=== PATIENT | female | born 1950 | race Caucasian/White ===

== ENCOUNTER → 2019-11-19 10:50 | Outpatient (BNVA) | payer MEDICARE, SELFPAY | PROVIDERS: Family Provider Nurse Practitioner Family; PCP Nurse Practitioner Family; Visit Provider Nurse Practitioner Family | DX: E11.69 Type 2 diabetes mellitus with other specified complication (principal); Z72.0 Tobacco use; E78.5 Hyperlipidemia, unspecified; I10 Essential (primary) hypertension | CPT/HCPCS: 80053; 80061; 84443; 85025 ==

== ENCOUNTER → 2019-12-11 10:51 | Outpatient (BNVA) | payer MEDICARE, SELFPAY | PROVIDERS: Family Provider Nurse Practitioner Family; PCP Nurse Practitioner Family; Visit Provider Family Medicine | DX: E11.9 Type 2 diabetes mellitus without complications (principal); E78.2 Mixed hyperlipidemia | CPT/HCPCS: 83036 ==

== ENCOUNTER → 2020-07-21 18:00 | Outpatient (BNVA) | payer MEDICARE, SELFPAY | PROVIDERS: Family Provider Nurse Practitioner Family; PCP Nurse Practitioner Family; Visit Provider Family Medicine | DX: E11.9 Type 2 diabetes mellitus without complications (principal); E78.2 Mixed hyperlipidemia; E78.1 Pure hyperglyceridemia; R03.0 Elevated blood-pressure reading, without diagnosis of hypertension | CPT/HCPCS: 80048; 83036 ==

== ENCOUNTER → 2021-01-25 10:22 | Outpatient (BNVA) | payer MEDICARE, SELFPAY | PROVIDERS: Family Provider Nurse Practitioner Family; PCP Nurse Practitioner Family; Visit Provider Family Medicine | DX: E11.9 Type 2 diabetes mellitus without complications (principal); E78.2 Mixed hyperlipidemia; E78.1 Pure hyperglyceridemia; Z72.0 Tobacco use; L72.0 Epidermal cyst; J44.9 Chronic obstructive pulmonary disease, unspecified | CPT/HCPCS: 80053; 80061; 83036; 83721 ==

== ENCOUNTER → 2021-06-30 10:43 | Outpatient (BNVA) | payer MEDICARE, SELFPAY | PROVIDERS: Family Provider Nurse Practitioner Family; PCP Nurse Practitioner Family; Visit Provider Emergency Medicine | DX: M25.562 Pain in left knee (principal); N64.52 Nipple discharge | CPT/HCPCS: 73562 ==

== ENCOUNTER → 2021-08-23 13:40 | Outpatient (BNVA) | payer MEDICARE, SELFPAY | PROVIDERS: Family Provider Nurse Practitioner Family; PCP Family Medicine; Visit Provider Family Medicine | DX: E11.9 Type 2 diabetes mellitus without complications (principal); N61.0 Mastitis without abscess | CPT/HCPCS: 80053; 83036; 85025 ==

== ENCOUNTER → 2021-11-24 11:30 | Outpatient (BNVA) | payer MEDICARE, SELFPAY | PROVIDERS: Family Provider Nurse Practitioner Family; PCP Family Medicine; Visit Provider Family Medicine | DX: E11.9 Type 2 diabetes mellitus without complications (principal); I10 Essential (primary) hypertension; E78.1 Pure hyperglyceridemia; L65.9 Nonscarring hair loss, unspecified; R53.83 Other fatigue; E03.9 Hypothyroidism, unspecified; C50.919 Malignant neoplasm of unspecified site of unspecified female breast | CPT/HCPCS: 80053; 80061; 82607; 82652; 83036; 83721; 84439; 84443; 84481; 85025 ==

== ENCOUNTER → 2022-06-20 11:40 | Outpatient (BNVA) | payer MEDICARE, SELFPAY | PROVIDERS: Family Provider Nurse Practitioner Family; PCP Family Medicine; Visit Provider Family Medicine | DX: E11.9 Type 2 diabetes mellitus without complications (principal); I10 Essential (primary) hypertension; L72.0 Epidermal cyst; L81.4 Other melanin hyperpigmentation; L57.0 Actinic keratosis; J44.9 Chronic obstructive pulmonary disease, unspecified; E78.1 Pure hyperglyceridemia; S69.92XA Unspecified injury of left wrist, hand and finger(s), initial encounter | CPT/HCPCS: 80053; 80061; 83036; 83721; 85025 ==

== ENCOUNTER → 2022-12-14 10:39 | Outpatient (BNVA) | payer MEDICARE, SELFPAY | PROVIDERS: Family Provider Nurse Practitioner Family; PCP Family Medicine; Visit Provider Family Medicine | DX: E11.9 Type 2 diabetes mellitus without complications (principal); E78.2 Mixed hyperlipidemia; I10 Essential (primary) hypertension; E78.1 Pure hyperglyceridemia; J44.9 Chronic obstructive pulmonary disease, unspecified; B02.9 Zoster without complications; Z71.85 Encounter for immunization safety counseling | CPT/HCPCS: 80048; 80061; 83036; 83721 ==

== ENCOUNTER → 2023-02-01 13:30 | Outpatient (BNVA) | payer MEDICARE, SELFPAY | PROVIDERS: Family Provider Nurse Practitioner Family; PCP Family Medicine; Visit Provider Family Medicine | DX: R07.81 Pleurodynia (principal); R19.02 Left upper quadrant abdominal swelling, mass and lump; J84.10 Pulmonary fibrosis, unspecified | CPT/HCPCS: 71046; 74018 ==

== ENCOUNTER 2023-02-21 13:29 | Outpatient (CLI) | payer MEDICARE, SELFPAY ==
--- NOTE | 2023-02-21 13:47 | CT_ITS ---
WS: [id number] CT CHEST AND ABDOMEN WITH CONTRAST HISTORY: R07.81 - Pleurodynia, Mass in LEFT upper quadrant for one month. Prior LEFT mastectomy. TECHNIQUE: Axial imaging is performed through the chest and abdomen with IV contrast. Sagittal and co tera reformats. All CT scans at [facility] use at least one of these dose optimization techn iques: automated exposure control; mA and/or kV adjustment per patient size (includes targeted exams where dose is matched to clinical indication); or iterative reconstruction. CONTRAST: Omnipaque 350; 100 mL IV. DLP: 439.36 mGy.cm COMPARISON: None available. Chest CT: Benign granulomata LEFT lower lobe. Otherwise lungs are clear. No mass or pneumonia. No pericardial or pleural effusions. Mild cardiomegaly. No mediastinal or hilar adenopathy. Mild atherosclerosis aorta. Prior LEFT mastectomy. LEFT thyroid nodule the maximum diameter of 11 mm. Mild increase in thoracic kyphosis. No destructive bone lesions. Abdomen CT: Normal size liver. 5 mm hypodensity towards the RIGHT diaphragm. 2 small to characterize. Normal port al vein. Gallbladder is slightly contracted with no adjacent inflammation. Normal spleen. Normal panc reas. No adrenal mass. Normal RIGHT kidney. Cyst upper pole LEFT kidney measures 1.2 cm. Stomach is distended with fluid. No small bowel obstruction. Visualized colon is normal. No adenopath y or ascites. Marker placed in the LEFT upper quadrant at the site of the palpable abnormality demons trates no underlying mass. No soft tissue abnormality. No destructive bone lesions. CT/CT chest abdomen w con* IMPRESSION: 1. No mass identified in the LEFT upper abdomen at the site of the palpable ab normality. 2. Prior granulomatous disease. 3. Mild cardiomegaly. 4. LEFT renal cyst, 1.2 cm. 5. No adenopathy in the chest or abdomen. No ascites.
[2023-02-21 14:05] LABS: Blood Urea Nitrogen 19 mg/dL (8-23)
[2023-02-21] MEDS: iohexol 350 mg/mL 500 mL Btl (per mL) IV (14:12)
== END 2023-02-21 13:30 | disposition home or self-care (01) ==
PROVIDERS: PCP Family Medicine; Visit Provider Family Medicine
DX: R07.81 Pleurodynia (principal); R19.02 Left upper quadrant abdominal swelling, mass and lump; R93.89 Abnormal findings on diagnostic imaging of other specified body structures; I51.7 Cardiomegaly; N28.1 Cyst of kidney, acquired; Z85.3 Personal history of malignant neoplasm of breast; Z87.09 Personal history of other diseases of the respiratory system
CPT/HCPCS: 71260; 74160; 82565; 84520; Q9967

== ENCOUNTER 2023-03-16 13:04 | Outpatient (CLI) | payer MEDICARE, SELFPAY ==
--- NOTE | 2023-03-16 13:15 | US_ITS ---
WS: [id number] ULTRASOUND THYROID TECHNIQUE: Ultrasound of the thyroid. CLINICAL INFORMATION: E04.1 - Nontoxic single thyroid nodule COMPARISON: None. FINDINGS: Thyroid: Right and left thyroid lobes are normal in size and echotexture. Right thyroid lobe: 4.3 cm x 1.9 cm x 1.5 cm Complex predominantly solid RIGHT mid thyroid nodule with a small amount of cystic change. This measu res approximately 1.7 x 1.3 x 1.9 cm Left thyroid lobe: 4.0 cm x 1.3 cm x 1.5 cm. A few small subcentimeter cystic-appearing and hypoechoic LEFT thyroid nodules largest measuring 6 mm in the mid thyroid near thyroid isthmus Isthmus: 0.2 mm. Cervical lymphadenopathy: None. US/US thyroid [id number] IMPRESSION: 1. Complex predominantly solid RIGHT mid thyroid nodule with a small amount of cystic change measuring 1.7 x 1.3 x 1.9 cm. This can be further evaluated with FNA. 2. Incidental subcentimeter LEFT thyroid nodules.
== END 2023-03-16 13:05 | disposition home or self-care (01) ==
LOC: RAD 13:04
PROVIDERS: PCP Family Medicine; Visit Provider Family Medicine
DX: E04.1 Nontoxic single thyroid nodule (principal); R93.89 Abnormal findings on diagnostic imaging of other specified body structures; Z83.49 Family history of other endocrine, nutritional and metabolic diseases
CPT/HCPCS: 76536

== ENCOUNTER 2023-04-04 08:03 | Outpatient (CLI) | payer MEDICARE, SELFPAY ==
--- NOTE | 2023-04-04 09:15 | US_ITS ---
WS: [id number] ULTRASOUND THYROID FNA CLINICAL INFORMATION: E04.1 - Nontoxic single thyroid nodule TECHNIQUE: Ultrasound-guided FNA FINDINGS: The procedure including risks, benefits, and complications were discussed with the patient who agreed to proceed. Timeout was performed. Using sterile technique patient was prepped and draped in usual sterile fashion. After 1% lidocaine, using ultrasound guidance, 25-gauge needle was advanced into the RIGHT thyroid nodule. 5 passes were made with active aspiration. Pathology was present for slide preparation. No immediate complications. Patient remained in the ultrasound suite 10 minutes postprocedure with intermittent ultrasound to ens ure no hematoma. No hematoma 10 minutes postprocedure. US/US biopsy/FNA thyroid [id number] IMPRESSION: 1. Uncomplicated ultrasound-guided thyroid FNA of the RIGHT mid thyroid nodule 2. Cytology is pending
== END 2023-04-04 08:04 | disposition home or self-care (01) ==
PROVIDERS: PCP Family Medicine; Visit Provider Family Medicine
DX: E04.1 Nontoxic single thyroid nodule (principal)
CPT/HCPCS: 10005; 88173

== ENCOUNTER → 2023-06-14 10:47 | Outpatient (BNVA) | payer MEDICARE, SELFPAY | PROVIDERS: PCP Family Medicine; Visit Provider Family Medicine | DX: E11.9 Type 2 diabetes mellitus without complications (principal); I10 Essential (primary) hypertension; B02.29 Other postherpetic nervous system involvement; F51.01 Primary insomnia; E04.1 Nontoxic single thyroid nodule | CPT/HCPCS: 80053; 83036 ==

== ENCOUNTER → 2023-08-03 13:18 | Outpatient (BNVA) | payer MEDICARE, SELFPAY | PROVIDERS: PCP Family Medicine; Visit Provider Nurse Practitioner Family | DX: L57.0 Actinic keratosis (principal); L82.0 Inflamed seborrheic keratosis; L57.8 Other skin changes due to chronic exposure to nonionizing radiation; D22.5 Melanocytic nevi of trunk; L81.4 Other melanin hyperpigmentation | CPT/HCPCS: 17000; 17110; 99203 ==

== ENCOUNTER → 2023-11-27 10:18 | Outpatient (BNVA) | payer MEDICARE, SELFPAY | PROVIDERS: PCP Family Medicine; Visit Provider Family Medicine | DX: E11.9 Type 2 diabetes mellitus without complications (principal); I10 Essential (primary) hypertension; E78.1 Pure hyperglyceridemia | CPT/HCPCS: 80048; 80061; 83036; 83721 ==

== ENCOUNTER 2024-03-11 06:14 | Outpatient (CLI) | payer MEDICARE, SELFPAY ==
--- NOTE | 2024-03-11 06:30 | US_ITS ---
WS: [id number] ULTRASOUND SOFT TISSUES LEFT axilla HISTORY: R59.1 - Generalized enlarged lymph nodes COMPARISON: None available. TECHNIQUE: 2-D and color Doppler imaging is submitted. Ultrasound was performed of the LEFT axilla. No mass is identified. There is a normal appearance of t he soft tissue. No distortion of the tissue. US/US soft tissue/extremity [id number] IMPRESSION: Negative ultrasound LEFT axilla. No mass.
== END 2024-03-11 06:15 | disposition home or self-care (01) ==
LOC: RAD 06:14
PROVIDERS: PCP Family Medicine; Visit Provider Nurse Practitioner
DX: R59.1 Generalized enlarged lymph nodes (principal)
CPT/HCPCS: 76882

== ENCOUNTER → 2024-05-29 10:39 | Outpatient (BNVA) | payer MEDICARE, SELFPAY | PROVIDERS: PCP Family Medicine; Visit Provider Family Medicine | DX: I10 Essential (primary) hypertension (principal); E11.9 Type 2 diabetes mellitus without complications | CPT/HCPCS: 80053; 83036 ==

== ENCOUNTER → 2024-08-28 11:08 | Outpatient (BNVA) | payer MEDICARE, SELFPAY | PROVIDERS: PCP Family Medicine; Visit Provider Family Medicine | DX: E11.9 Type 2 diabetes mellitus without complications (principal) | CPT/HCPCS: 83036 ==

== ENCOUNTER → 2024-09-04 12:41 | Outpatient (BNVA) | payer MEDICARE, SELFPAY | PROVIDERS: PCP Family Medicine; Visit Provider Nurse Practitioner Family | DX: L57.8 Other skin changes due to chronic exposure to nonionizing radiation (principal); D22.5 Melanocytic nevi of trunk; L81.4 Other melanin hyperpigmentation; D22.72 Melanocytic nevi of left lower limb, including hip; B07.0 Plantar wart; L82.0 Inflamed seborrheic keratosis; D48.5 Neoplasm of uncertain behavior of skin; L57.0 Actinic keratosis | CPT/HCPCS: 11102; 17000; 17110; 99213 ==

== ENCOUNTER → 2024-10-16 08:07 | Outpatient (BNVA) | payer MEDICARE, SELFPAY | PROVIDERS: PCP Family Medicine; Visit Provider Dermatology | DX: L82.1 Other seborrheic keratosis (principal); L81.4 Other melanin hyperpigmentation; D18.01 Hemangioma of skin and subcutaneous tissue; F17.200 Nicotine dependence, unspecified, uncomplicated; C44.01 Basal cell carcinoma of skin of lip | CPT/HCPCS: 13151; 17311; 99213 ==

== ENCOUNTER → 2024-11-22 10:48 | Outpatient (BNVA) | payer MEDICARE, SELFPAY | PROVIDERS: PCP Family Medicine; Referring Provider Family Medicine; Visit Provider Family Medicine | DX: E11.9 Type 2 diabetes mellitus without complications (principal) | CPT/HCPCS: 83036 ==

== ENCOUNTER → 2025-02-19 15:16 | Outpatient (BNVA) | payer MEDICARE, SELFPAY | PROVIDERS: PCP Family Medicine; Visit Provider Nurse Practitioner Family | DX: L81.4 Other melanin hyperpigmentation (principal); L57.8 Other skin changes due to chronic exposure to nonionizing radiation; D22.5 Melanocytic nevi of trunk; L82.1 Other seborrheic keratosis; Z08 Encounter for follow-up examination after completed treatment for malignant neoplasm; Z85.828 Personal history of other malignant neoplasm of skin; L82.0 Inflamed seborrheic keratosis; R58 Hemorrhage, not elsewhere classified; L29.89 Other pruritus; R20.8 Other disturbances of skin sensation; Z78.9 Other specified health status; L53.8 Other specified erythematous conditions | CPT/HCPCS: 17000; 17110; 99213 ==

== ENCOUNTER → 2025-02-21 10:18 | Outpatient (BNVA) | payer MEDICARE, SELFPAY | PROVIDERS: PCP Family Medicine; Visit Provider Family Medicine | DX: E11.9 Type 2 diabetes mellitus without complications (principal); J44.9 Chronic obstructive pulmonary disease, unspecified; I10 Essential (primary) hypertension; E78.1 Pure hyperglyceridemia | CPT/HCPCS: 80053; 80061; 83036; 83721; 85025 ==

== ENCOUNTER → 2025-05-19 10:50 | Outpatient (BNVA) | payer MEDICARE, SELFPAY | PROVIDERS: PCP Family Medicine; Visit Provider Nurse Practitioner | DX: E11.9 Type 2 diabetes mellitus without complications (principal) | CPT/HCPCS: 80048; 83036 ==

== ENCOUNTER → 2025-07-09 13:41 | Outpatient (BNVA) | payer MEDICARE, SELFPAY | PROVIDERS: PCP Family Medicine; Visit Provider Internal Medicine Cardiovascular Disease | DX: E78.1 Pure hyperglyceridemia (principal); E11.9 Type 2 diabetes mellitus without complications; Z79.84 Long term (current) use of oral hypoglycemic drugs; I10 Essential (primary) hypertension; M79.604 Pain in right leg; F17.210 Nicotine dependence, cigarettes, uncomplicated; R07.9 Chest pain, unspecified | CPT/HCPCS: 93005; 99214 ==

== ENCOUNTER 2025-07-18 13:45 | Outpatient (CLI) | payer MEDICARE, SELFPAY ==
--- NOTE | 2025-07-18 13:45 | USR_ITS ---
PROCEDURE INFORMATION: Exam: US Duplex Bilateral Lower Extremity Arteries Exam date and time: 07/18/2025 1:53 PM Age: 75 years old Clinical indication: Pain; Leg, lower; Bilateral; Additional info: Bilat leg pain TECHNIQUE: Imaging protocol: Real-time ultrasound scan of the arteries of the bilateral lower extremities with 2-D sanchez scale, color Doppler flow and spectral waveform analysis. Images documented and saved. COMPARISON: US soft tissue/extremity [id number] 03/11/2024 6:26 AM FINDINGS: Right common femoral artery: No occlusion or significant stenosis. Normal waveform. Right superficial femoral artery: No occlusion or significant stenosis. Normal waveform. Right popliteal artery: There is severe diffuse nonocclusive disease with. Low-amplitude monophasic waveform. Right calf/foot arteries: There is severe diffuse nonocclusive disease in the visualized arteries. Low amplitude monophasic waveform waveforms are present. Dorsalis pedis artery is patent. Left common femoral artery: No occlusion or significant stenosis. Normal waveform. Left superficial femoral artery: No occlusion or significant stenosis. Normal waveform. Left popliteal artery: There is severe diffuse nonocclusive disease. Low-amplitude monophasic waveform. Left calf/foot arteries: There is severe diffuse nonocclusive disease. Low-amplitude monophasic waveforms. Dorsalis pedis artery is patent. US/[place] [id number] IMPRESSION: 1. Severe diffuse nonocclusive disease in the bilateral popliteal and trifurcation vessels. 2. The remainder of the arterial system in both legs is unremarkable. .
== END 2025-07-18 13:46 | disposition home or self-care (01) ==
LOC: RAD 07-25 09:38
PROVIDERS: PCP Family Medicine; Visit Provider Internal Medicine Cardiovascular Disease
DX: M79.604 Pain in right leg (principal); M79.605 Pain in left leg; I70.203 Unspecified atherosclerosis of native arteries of extremities, bilateral legs
CPT/HCPCS: 93925

== ENCOUNTER 2025-08-06 15:17 | Outpatient (CLI) | payer MEDICARE, SELFPAY ==
--- NOTE | 2025-08-06 15:45 | CTR_ITS ---
PROCEDURE INFORMATION: Exam: CTA Abdominal Aorta and Bilateral Lower Extremities (Run-off) With Contrast Exam date and time: 08/06/2025 3:48 PM Age: 75 years old Clinical indication: Prior surgery; Surgery date: 6+ months; Surgery type: Tubal; Right leg pain with intermittent spasms; Additional info: Bilat leg pain TECHNIQUE: Imaging protocol: Computed tomographic angiography of the of the abdominal aorta, pelvis and bilateral lower extremities with contrast. 3D rendering (Not supervised by radiologist): MIP and/or 3D reconstructed images were created by the technologist. Radiation optimization: All CT scans at this facility use at least one of these dose optimization techniques: automated exposure control; mA and/or kV adjustment per patient size (includes targeted exams where dose is matched to clinical indication); or iterative reconstruction. Contrast material: OMNIPAQUE 350; Contrast volume: 125 ml; Contrast route: INTRAVENOUS (IV); COMPARISON: CT chest abd w con*[id number] 02/21/2023 2:08 PM RADIATION DOSE METRICS: Total DLP (mGy-cm): 1428.02 FINDINGS: Aorta: No aortic aneurysm. No aortic dissection. Mild atherosclerosis. Celiac and mesenteric arteries: No occlusion or significant stenosis. Renal arteries: No occlusion or significant stenosis. Right iliac arteries: Calcification and noncalcified plaque proximal right common iliac artery and proximal right internal iliac artery without significant stenosis. Right femoral/popliteal arteries: Calcification. Mild narrowing femoral artery in the adductor canal. There is occlusion of the popliteal artery just superior to the knee. Reconstitution popliteal artery [id number]. Mild narrowing left femoral artery in the Right infrapopliteal arteries: Opacified right anterior tibial artery extends into the right foot. Opacified peroneal artery extends into the right foot. Right posterior tibial artery occluded in the proximal right lower leg. Left iliac arteries: Calcification and noncalcified plaque proximal left common iliac artery and left internal iliac artery without significant stenosis. Left femoral/popliteal arteries: Mild narrowing left femoral artery in the adductor canal. Calcification in this area. Areas of narrowing of the left popliteal artery with area of the occlusion at the level of the knee with reconstitution left popliteal artery Left infrapopliteal arteries: Opacified left posterior tibial artery is seen extending into the left foot . Opacified left peroneal artery seen extending into the mid calf. Opacified left anterior tibial artery seen to the distal left lower leg. Liver: Fatty change. 5.7 mm round low-density lesion anterior upper right lobe of the liver most likely a cyst. No follow-up imaging recommended.In a low-risk patient, this is most likely to be benign and no further follow-up is recommended. In a high-risk patient, follow-up MRI in 3-6 months is recommended (or earlier if warranted by the patient's specific clinical circumstances). (Reference: Reta) References: Reta ISABEL, et al. Management of Incidental Liver Lesions on CT: A White Paper of the ACR Incidental Findings Committee. J Am Nayeli Radiol. 2017;14(11):1814-7655. Gallbladder and biliary ducts: Unremarkable. Status post cholecystectomy. Common bile duct measures up to 1 cm within normal limits for post cholecystectomy patient. Loose No ductal dilation. Pancreas: Dilatation of the pancreatic duct the head, body, and tail of the pancreas measuring up to 3 mm in diameter. 2.7 mm round low-density lesion anterior proximal tail image 141 series 5. Three point 6 mm round low-density lesion tail of pancreas. Heterogeneous body and head of the pancreas. Follow-up MRI suggested if clinically indicated. Spleen: Normal. No splenomegaly. Adrenal glands: Normal. No mass. Kidneys and ureters: 4.3 mm cyst anterior mid left kidney. No follow-up imaging recommended. No calculi. No hydronephrosis.. Benign simple renal cyst requiring no follow-up. (Reference: Cheryl) References: Cheryl SG, et al. Bosniak Classification of Cystic Renal Masses, Version 2019: An Update Proposal and Needs Assessment. Radiology. 2019;292(2):475-488. Stomach and bowel: Appearance of possible apple-core lesion proximal ascending colon slice 205 series 5. This measures 2.28 cm in length. Follow-up colonoscopy recommended. [id number] amount of fecal material throughout the colon. Correlate for constipation. Moderate distension of the stomach. Correlate for some delayed emptying. There is mild dilatation of the small bowel with increased fluid may represent mild stasis. Appendix: No evidence of appendicitis. Urinary bladder: Nondistended. Either an area of the localized wall thickening or adjacent soft tissue elevating floor of the urinary bladder. Ultrasound suggested on a nonemergent basis. Reproductive: Unremarkable as visualized. Intraperitoneal space: Unremarkable. No free air. No significant fluid collection. Lymph nodes: No lymphadenopathy. Bones/joints: Degenerative changes. Probable hemangioma body of T9. Soft tissues: Small umbilical hernia containing fat. CT/CT angio abd aorta runof [id number] IMPRESSION: 1. Diffuse atherosclerosis. 2. Occlusion and reconstitution right popliteal artery. Opacified right anterior tibial artery extends into the right foot. Opacified right peroneal artery extends to the right foot Right posterior tibial artery occluded in the proximal right lower leg . 3. Occlusion and reconstitution of the left popliteal artery. Opacified left posterior tibial artery seen extending into the left foot. Opacified left peroneal artery seen to the level of the left mid calf. Opacified left anterior tibial artery seen to the level of the left lower leg. 4. Appearance of the possible annular lesion of the ascending colon suspicious. Colonoscopy recommended. 5. Moderate amount of fecal material throughout colon. Correlate for symptoms of constipation. Maybe some stasis of the small bowel. 6. Mild dilatation of the pancreatic duct. Two small cystic lesions in the pancreas. Heterogeneous density head and body of the pancreas but no discrete mass. Follow-up MRI of pancreas suggested if clinically indicated. 7. Status post cholecystectomy. Fatty change of the liver. Probable hepatic cyst. 8. Area of the mild localized wall thickening or some localized elevation of the floor of the urinary bladder . Follow-up nonemergent ultrasound suggested.
[2025-08-06 15:46] LABS: Blood Urea Nitrogen 32 mg/dL (8-23)
[2025-08-06] MEDS: iohexol 350 mg/mL 500 mL Btl (per mL) IV (16:00)
== END 2025-08-06 15:18 | disposition home or self-care (01) ==
LOC: RAD 15:18
PROVIDERS: PCP Family Medicine; Visit Provider Internal Medicine Cardiovascular Disease
DX: M79.604 Pain in right leg (principal); M79.605 Pain in left leg; I70.0 Atherosclerosis of aorta; I70.291 Other atherosclerosis of native arteries of extremities, right leg; I70.211 Atherosclerosis of native arteries of extremities with intermittent claudication, right leg; I70.221 Atherosclerosis of native arteries of extremities with rest pain, right leg; I70.202 Unspecified atherosclerosis of native arteries of extremities, left leg; I70.212 Atherosclerosis of native arteries of extremities with intermittent claudication, left leg; K76.0 Fatty (change of) liver, not elsewhere classified; K76.89 Other specified diseases of liver; Z90.49 Acquired absence of other specified parts of digestive tract; R90.89 Other abnormal findings on diagnostic imaging of central nervous system; K86.2 Cyst of pancreas; N28.1 Cyst of kidney, acquired; K56.41 Fecal impaction; K31.84 Gastroparesis; R14.0 Abdominal distension (gaseous); D37.4 Neoplasm of uncertain behavior of colon; R93.5 Abnormal findings on diagnostic imaging of other abdominal regions, including retroperitoneum; K42.9 Umbilical hernia without obstruction or gangrene
CPT/HCPCS: 75635; 82565; 84520

== ENCOUNTER → 2025-08-19 08:59 | Outpatient (BNVA) | payer MEDICARE, SELFPAY | PROVIDERS: PCP Family Medicine; Referring Provider Family Medicine; Visit Provider Family Medicine | DX: I10 Essential (primary) hypertension (principal); E11.9 Type 2 diabetes mellitus without complications; M79.671 Pain in right foot; R58 Hemorrhage, not elsewhere classified | CPT/HCPCS: 80048; 83036; 85025; 85610 ==

== ENCOUNTER → 2025-08-25 11:23 | Outpatient (BNVA) | payer MEDICARE, SELFPAY | PROVIDERS: PCP Family Medicine; Visit Provider Nurse Practitioner Family | DX: L57.0 Actinic keratosis (principal); L57.8 Other skin changes due to chronic exposure to nonionizing radiation; L81.4 Other melanin hyperpigmentation; D22.5 Melanocytic nevi of trunk; L82.1 Other seborrheic keratosis; Z08 Encounter for follow-up examination after completed treatment for malignant neoplasm; Z85.828 Personal history of other malignant neoplasm of skin | CPT/HCPCS: 99213 ==

== ENCOUNTER → 2025-09-04 10:39 | Outpatient (BNVA) | payer MEDICARE, SELFPAY | PROVIDERS: PCP Family Medicine; Visit Provider Podiatrist Foot & Ankle Surgery | DX: M79.671 Pain in right foot (principal); I73.9 Peripheral vascular disease, unspecified; M79.606 Pain in leg, unspecified; I99.8 Other disorder of circulatory system; M79.604 Pain in right leg | CPT/HCPCS: 99203 ==

== ENCOUNTER → 2025-09-05 08:54 | Outpatient (BNVA) | payer MEDICARE, SELFPAY | PROVIDERS: PCP Family Medicine; Referring Provider Internal Medicine Cardiovascular Disease; Visit Provider Internal Medicine Cardiovascular Disease | DX: I10 Essential (primary) hypertension (principal); E11.9 Type 2 diabetes mellitus without complications; Z72.0 Tobacco use; R58 Hemorrhage, not elsewhere classified | CPT/HCPCS: 80048; 85025; 85610 ==

== ENCOUNTER 2025-09-09 07:09 | Outpatient (CLI) | payer MEDICARE, SELFPAY ==
[2025-09-09] VITALS (33 sets, daily range): BP systolic 94–169; BP diastolic 56–108; PULSE 70–86; RESP 11–20; TEMP 36.6; O2SAT 90–95; BMI 24.7
--- NOTE | 2025-09-09 07:30 | XACV_ITS ---
Exam Room: 2 Ht: 163 cm Wt: 65 kg BSA: 1.73 m2 Gender: Female : 1950 Any Known Allergies: Other Exam Priority: STAT Procedure(s): Procedure Description: Diagnostic procedure Procedure Description: Peripheral Cath Diagnostic Procedure Procedure Description: Abdominal aortic angiography Procedure Description: Lower extremities' angiography Procedure Description: Peripheral vascular Intervention Procedure Description: PV Balloon Procedure Description: PV Stent Procedure Description: Miscellaneous Procedure Description: ACT Abdominal Diagnostic Findings Distal abdominal aorta is patent. Lower Extremity Diagnostic Findings INDICATION: Critical limb ischemia/ Right foot resting pain. Right Mid to distal-longitudinal Superficial Femoral Artery: 100% stenosis. Right Distal Superficial Femoral Artery: Total occlusion. Right lower extremity findings: Right common iliac artery is patent. Right external iliac artery is patent. Right internal iliac artery is patent. Right common femoral artery is patent. Right profunda artery is patent. Total occlusion of distal SFA. Popliteal artery reconstitutes via collaterals. Below the knee patient has 2 vessel runoff with patent anterior tibial and peroneal arteries. PT is totally occluded. . Left lower extremity findings: Left common iliac artery is patent. Left external iliac artery is patent. Left and iliac arteries patent. Left common femoral artery is patent. Left profunda artery is patent. Left SFA is patent with moderate disease. Left popliteal artery has moderate disease. Below the knee patient has 3 vessel runoff. . Right Mid-longitudinal Popliteal Artery: Moderate 70% stenosis. Lower Extremity Interventional Findings Right Distal Superficial Femoral Artery: 100% stenosis treated with Lutonix DCB 5 X 150mm and Supera Stent 6.0 X 80mm. Procedure detail:After diagnostic angiogram, cross totally occluded the right SFA with Glidewire and seeker support catheter. We dilated the popliteal artery and distal SFA with 5.0 x 150 mm drug-coated balloon. This was followed by placement of 5.0 x 80 mm Supera stent and popliteal artery. An overlapping 6.0 x 80 mm Supera stent was placed in distal SFA. At this time final angiogram was performed that showed excellent stent expansion and no residual stenosis. Patient left the pathology lab technician in a stable condition. Right Mid-longitudinal Popliteal Artery: 70% stenosis treated with Lutonix DCB 5 X 150mm and Supera Stent 5.0 X 80mm. Conclusions Severe right lower extremity peripheral artery disease status post revascularization of distal SFA to popliteal artery with 2 stents.. Right Distal Superficial Femoral Artery was treated with two Balloon. Right Mid-longitudinal Popliteal Artery was treated with Balloon and Stent. Recommendations Dual antiplatelet therapy with aspirin and plavix. High intensity statin therapy. Outpatient cardiology follow up in 2 weeks. Pressures Phase:Rest AO : 176 / 74 ( 113 ) @ 8:35:00 AM Hemodynamic Data Phase:Rest AO : 176.0 / 74.0 ( 113.0 ) @ 8:35:00 AM Clinical Evaluation EBL: 5mL-10mL Procedural Details Procedure Consent Obtained. Admit Source: Out Patient. Demarcus Sparks RN was relieved by Nelli Barnhart RN as monitoring person. Pre-Procedure Time Out. Identified patient by full name and date of as verbalized by the patient/guarantor. Does the consent match the physician's order: Yes. Accurate & Complete Informed Consent: Yes. Inpatient/Outpatient History & Physical on Chart: Yes. If H&P is completed, is and addenduem needed: No; If yes, is the addendum complete: N/A. Visualize and Verify Site with Patient/Guarantor: N/A. Relevant Radiology Images available: Yes. The risks, benefits, and alternatives of sedation and/or procedure were discussed by physician. The patient agrees to continue. Procedure started. Correct patient, site and procedure confirmed by cath team. Current diagnosis: PAD. PERRLA. Strong, equal hand research/program director bilaterally. Lungs clear x 5 lobes. IV Site on Arrival: 20 gauge in the left anticubital. IV Fluids: 0.9% NaCl at KVO. 0 mL infused prior to pathology lab technician. Pre Procedural Pulses: bilateral radial was 2+. Pre Procedural Pulses: bilateral dorsalis pedis was Doppled. Pre Procedural Pulses: right posterior tibial was Absent. Pre Procedural Pulses: left posterior tibial was Doppled. Oxygen started at 2liters/min via nasal canula. bilateral groins was prepped with chloroprep then draped in the usual sterile fashion. Physician notified. Baseline sample Acquired. HR: 129 BPM. Physician arrived. Physician scrubbed in. Time out performed with cath team. Lidocaine 1% infiltrated to the left groin. Ultrasound obtained to assist with arterial access. Arterial access obtained with micropuncture set. A 5Fr UF catheter in over wire. Abdominal aortogram performed in AP @ 10 mL/sec for a total of 30 mL. Glidewire inserted parked in right popliteal. 6fr short sheath exchanged for 6fr 45cm flexor sheath over the glidewire. Lidocaine 1% infiltrated to the left groin. Seeker catheter in over the glidewire advanced to popliteal. Glidewire out. Side port of sheath attached to Normal Saline flush at KVO to maintain patency. Glidewire in through seeker catheter, seeker advanced to peroneal. Wire out. Hand injection through seeker catheter with DSA imaging to better visualize distal vessels. Glidewire in through seeker catheter. Seeker catheter out over wire. Add inventory: endoflator. Balloon inserted over the wire to the right popliteal. Inflation number : 1 A Lutonix DCB 5 X 150mm was prepped and advanced across the Popliteal, Right , then inflated to 7 ANITA for 1:31 seconds. Inflation number: 1 The Lutonix DCB 5 X 150mm was reinflated across the Distal Superficial Femoral, Right, to 7 ANITA for 1:28 seconds. Balloon out over wire. Right common femoral selected and arteriogram with runoff performed @ 10 mL/sec for a total of 30 mL. Seeker in over the glidewire. Seeker parked in popliteal. Glidewire out. 300cm runthrough wire in through seeker catheter to posterior tibial. Seeker out. Stent inserted over the wire to the popliteal. Inflation Number : 2 A Supera Stent 5.0 X 80mm -Lot Number# [id number] EXP 12-23-2026 was prepped and advanced across the Popliteal, Right. The stent was deployed at 0 ANITA for 0:56 seconds. Stent deployement system out over the wire. Stent inserted over the wire to the distal superficial femoral. Inflation number : 2 A Supera Stent 6.0 X 80mm was prepped and advanced across the Distal Superficial Femoral, Right , then inflated to 0 ANITA for 0:33 seconds. LOT # [id number] EXP 03-24-2026. Stent deployement system out over the wire. Results checked. Glidewire in through sheath. Glidewire out. 6fr 45cm sheath exchanged for new 6fr 11cm sheath over the standard wire. ACT drawn. Results 223 seconds. Therapeutic limits - pre-heparin administration 90-150 seconds and monitoring heparin during a vascular procedure >250 seconds. Sheath injected in Left common femoral artery and runoff performed. A Left femoral angiogram was performed to determine safe placement of closure device. ACT drawn. Results 277 seconds. Therapeutic limits - pre-heparin administration 90-150 seconds and monitoring heparin during a vascular procedure >250 seconds. Sheath(s) sutured into position with 2-0 silk and sterile 4x4's and Op-site applied over the site. No oozing or signs and symptoms of hematoma noted. A Suture was successful obtaining hemostatsis at the Left Femoral artery insertion site. Arterial sheath flushed and connected to tranducer and pressure bag with heparinized saline. Post Procedure: Pulses reassessed and unchanged. PERRLA. Strong, equal hand research/program director bilaterally. No VTE prophylaxis required. Medication's Wasted: Heparin = 2000 unit. Total IV fluids: 75 mL. Post-op diagnosis: Total occlussion of right popliteal and SFA. Status post DCB and placement of 2 stents. Complications: None. Estimated blood loss: 5mL-10mL. Responsiveness - Normal response to verbal stimuli; alert and oriented, PERRLA. Airway - Unaffected, no intervention required; spontaneous ventilation. Circulation: W/N/L, pulses unchanged. Nausea/Vomiting: No. Procedure completed. Patient transferred by stretcher to CPRU. Vital chart was stopped. Access Site Site: Left Femoral artery Sheath Size: 6 Fr Hemostasis Method: Suture Hemostasis Success: Successful Procedure Medications Start: 8:28 AM Stop: 8:28 AM Medication: Versed Amount: 1 mg Route: I.V. Start: 8:28 AM Stop: 8:28 AM Medication: Fentanyl Amount: 50 mcg Route: I.V. Start: 8:39 AM Stop: 8:39 AM Medication: Heparin Amount: 5000 units Route: I.V. Start: 8:54 AM Stop: 8:54 AM Medication: Heparin Amount: 1000 units Route: I.V. Start: 8:54 AM Stop: 8:54 AM Medication: Versed Amount: 1 mg Route: I.V. Start: 8:58 AM Stop: 8:58 AM Medication: Fentanyl Amount: 25 mcg Route: I.V. Start: 9:25 AM Stop: 9:25 AM Medication: Fentanyl Amount: 25 mcg Route: I.V. Start: 9:26 AM Stop: 9:26 AM Medication: Plavix Amount: 600 mg Route: P.O. Start: 9:26 AM Stop: 9:26 AM Medication: Heparin Amount: 1000 units Route: I.V. I, the attending physician, have reviewed and verified all procedure medications. Yes, all medications given per verbal order History/Risk Factors Hypertension: No Dyslipidemia: Yes Peripheral Arterial Disease (PAD): No Myocardial Infarction (OK): No Obesity: No Renal Disease: No Tobacco Use: Current/Recent(w/in 1 year) Prior Interventions PCI: No CABG: No Valve Surgery: No Report Signatures Finalized by Felice Wolf MD on 09/23/2025 12:02 PM
--- NOTE | 2025-09-09 08:14 | W.PM.OPSFHP ---
Same Day Surgery H&P Indication for Procedure/HPI DATE OF PROCEDURE: September 09, 2025 CHIEF COMPLAINT/INDICATIONFOR SURGICAL PROCEDURE: Resting right foot pain PREOP DIAGNOSIS: Critical limb ischemia/ resting right foot pain PLANNED PROCEDURE: Operation Date: 09/09/25 08:30 Proposed Procedures p Peripheral Angiogram(Bilateral) - Felice Wolf M.D Possible intervention 75-year-old woman with past medical history of diabetes, tobacco use, COPD who has been referred for peripheral angiogram. As she has been having severe right foot pain that is resting as well. CTA was performed that showed occluded right popliteal artery. Also has severe below the knee PAD. Plan for peripheral angiogram with possible angiogram Medications/Allergies* Home Medications ?Medication ?Instructions ?Recorded ?Confirmed ?Type magnesium hydroxide 400 mg/5 mL 15 ml PO DAILY PRN Constipation 08/28/24 09/08/25 History oral suspension (Milk of Magnesia) magnesium glycinate 100 mg PO DAILY 07/09/25 09/09/25 History Allergies/Adverse Reactions Allergy/AdvReac Type Severity Reaction Status Date / Time amoxicillin Allergy vomiting Verified 09/09/25 08:10 Pertinent History/Comorbid Conditions* Medical History (Updated 09/08/25 @ 16:56 by Tim Albert DPM) HX: breast cancer Bee sting-induced anaphylaxis Tobacco use Hypertriglyceridemia Type 2 diabetes mellitus Surgical History (Updated 08/01/22 @ 07:50 by Maddy Regalado DO) History of mastectomy S/P mastectomy, bilateral H/O tubal ligation Hx of tonsillectomy Family History (Updated 11/19/19 @ 10:34 by Renu Kiser RN) Hypertension Mother Sister Social History Smoking and tobacco/nicotine status: current every day tobacco/nicotine user cigarettes Packs smoked per day: 1 Years cigarettes smoked: 56 Alcohol intake: current Alcohol intake frequency: few times a month Substance/Drug Use: never Current gender identity: Female Pertinent Exam Findings alert, oriented x 3, clear to auscultation bilaterally and regular rate & rhythm Pulses are not palpable on right foot Conscious Sedation Assessment PATIENT ASSESSED PRIOR TO SEDATION, WITH NO CHANGE NOTED: Yes AIRWAY EVAL/ANESTHESIA PLAN: normal airway, ASA III, Local Anesthesia, Risks, benefits & alternatives of sedation and/or procedure discussed and Patient agrees to continue as planned ADDITIONAL INFORMATION: Moderate sedation Recommendations Risks and benefits of procedure reviewed and Patient/family agree to proceed Surgery/Procedure today (Peripheral angiogram with possible percutaneous coronary intervention) Coding Level of Care Code Acute Code for Chg Castillo
--- NOTE | 2025-09-09 09:45 | SUR.PHASEI ---
Addendum entered by Perry Stoddard RN 09/09/25 10:58: IV fluids set at 50 ml/hr. Original Note: POST CATH FLUIDS IV fluids set at 100 ml/hr.
--- NOTE | 2025-09-09 09:48 | P.PCN_ITS ---
Procedure Note: Date of procedure: 09/09/25 Pre-procedure diagnosis: Critical limb ischemia/resting right pain Post-procedure diagnosis: other (Total occlusion of distal SFA/popliteal artery status post intervention with drug-coated balloon angioplasty and 2 stents ) Procedure: Total occlusion of right distal SFA/popliteal artery s/p intervention with drug- coated balloon angioplasty and 2 stents. Dual antiplatelet therapy with aspirin and plavix High intensity statin therapy Smoking cessation strongly recommended. Performing Provider: Felice Wolf Estimated blood loss (mL): 10 Complications: None Condition: stable Disposition: floor Coding Level of Care Code Acute Code for Chg Fwrigo
--- NOTE | 2025-09-09 10:38 | SUR.PHASEI ---
POST CATH NOTE Received patient from flower shop laborer/designer. Status post cardiac catheterization via the Left Femoral Approah. Sheath to pressure bag. No s/s of hematoma noted. Call light within reach. Family at bedside. Informed to call for needs. See PCS documentation for assessments.
--- NOTE | 2025-09-09 11:31 | PC.NURSE ---
Patient transferred from superintendent geophysical laboratory to CSU at 1130, with a left femoral sheath. NS to run at 50ml/hr.
[2025-09-09 13:09] LABS: Partial Thromboplastin Time 56.1 SECONDS (23.9-36.7)
--- NOTE | 2025-09-09 14:00 | PC.NURSE ---
Pt laying supine. Dr. Wolf removed femoral sheath per protocol using pharmacy technician program director with a [employer] instrument. Manual pressure applied for 2 minuted. Site assessed c/d/i. No hematoma present. Distal pulsed +2 present. Pt instructed to lay supine for 4 hours with affected leg straight. Pt verbalizes and understands. Pt tolerated well. Call light/personal items within reach. POC ongoing.
[2025-09-10] VITALS: BP 132/74; PULSE 91; RESP 17; O2SAT 90
[2025-09-10] MEDS: DAPAGLIFLOZIN 10 MG TABLET PO (04:53)
[2025-09-10] MEDS: ATORVASTATIN 20 MG TABLET PO (04:53)
[2025-09-10 05:56] LABS: Hematocrit 41.9 % (36-47); Hemoglobin 13.80 g/dL (11.27-16.99); Mean Corpuscular HGB Conc 32.9 g/dL (30-55); Mean Corpuscular Hemoglobin 29.2 pg (27-33); Mean Corpuscular Volume 88.8 fl (85-98); Nucleated Red Blood Cells % 0 %; Platelet Count 208 10^3/cmm (157-399); Red Blood Count 4.72 10^6/uL (3.85-5.65); White Blood Count 9.56 10^3/uL (3.29-11.43)
[2025-09-10 06:36] LABS: Blood Urea Nitrogen 21 mg/dL (8-23); Calcium 9.0 mg/dL (8.5-10.5); Carbon Dioxide 17 mmol/L (22-29); Chloride 103 mmol/L (98-107); Glucose 185 mg/dL (65-115); Osmolality Calculated 292 mOsm/kg (285-295); Sodium 137 mmol/L (136-145)
[2025-09-10 06:39] LABS: Anion Gap 21.5 (5-19); Potassium 4.5 mmol/L (3.5-5.1)
--- NOTE | 2025-09-10 10:41 | PC.NURSE ---
Patient discharged to home. Instruction provided regarding follow up needs, medications and site care with restriction. Patient verbalized complete understanding. Left groin remains c,d,i without s/s of bleeding or hematoma formation observed. Patient c/o mild pain to site. Patient taken by wheelchair to private vehicle. No distress observed.
--- NOTE | 2025-09-10 11:51 | P.DS_ITS ---
Discharge Providers Date of Admission: 09/09/2025 Date of Discharge: September 10, 2025 Attending Provider at Discharge: Felice Wolf M.D Primary Care Provider: Jennifer Caldwell MD Reason for Visit Reason for Visit: I73.9 Brief History: This is a 75-year-old female with a 6-week history of right leg and foot numbness tingling cramping jabbing pain and glot-gro-udxaabg feeling on the bottom of the right foot that started after a 6-hour car ride. Venous Dopplers negative for DVT. Foot on the right was also red. Patient has a history of breast cancer, tobacco abuse, hypertriglyceridemia, and type 2 diabetes. US was obtained that showed: US/[place] [id number] IMPRESSION: 1. Severe diffuse nonocclusive disease i n the bilateral popliteal and trifurcation vessels. 2. The remainder of the arterial system in both legs is unremarkable. . CTA AFRO showed IMPRESSION: 1. Diffuse atherosclerosis. 2. Occlusion and reconstitution right po pliteal artery. Opacified right anterior tibial artery extends into the right foot. Opacified right peroneal artery extends to the right foot Right posterior tibial artery occluded in the proximal right lower leg . 3. Occlusion and reconstitution of the l eft popliteal artery. Opacified left posterior tibial artery seen extending into the left foot. Opacified left peroneal artery seen to the level of the left mid calf. Opacified left anterior tibial artery seen to the level of the left lower leg. 4. Appearance of the possible annular le ced of the ascending colon suspicious. Colonoscopy recommended. 5. Moderate amount of fecal material thr oughout colon. Correlate for symptoms of constipation. Maybe some stasis of the small bowel. 6. Mild dilatation of the pancreatic carola t. Two small cystic lesions in the pancreas. Heterogeneous density head and body of the pancreas but no discrete mass. Follow-up MRI of pancreas suggested if clinically indicated. 7. Status post cholecystectomy. Fatty c hange of the liver. Probable hepatic cyst. 8. Area of the mild localized wall thick ening or some localized elevation of the floor of the urinary bladder . Follow-up nonemergent ultrasound suggested. Hospital Course Hospital Course Patient was found to have total occlusion of the right distal SFA/popliteal artery status post intervention with drug coated balloon angioplasty and 2 stents. Patient was started on dual antiplatelet therapy, high intensity statin therapy. Smoking cessation was strongly recommended. Patient did well postprocedure with no complications. She will follow-up in the clinic in 1 week. Physical Exam Narrative: General: No apparent distress, healthy appearing, well nourished HENMT: normoceophalic Neck: No carotid bruit bilaterally Muskuloskeletal: Full ROM Respiratory: Normal respiratory effort, clear to auscultation bilaterally throughout all lung card, no use of accessory muscles Cardio: No JVD, regular rate, regular rhythm, S1 S2 normal, no murmurs, peripheral pulses 2+ radial, 2+ PT and DP palpated on the right lower extremity GI: Normal to inspection, nondistended Extremities: Full ROM, normal, normal capillary refill, no cyanosis or edema Neuro: Alert and oriented x4, no focal motor deficits Psych: Affect normal, denies suicidal ideation, mental status grossly normal Skin: left groin site clean, dry, intact, soft nontender w/o s/s of hematoma Urinary Catheter Management: Singletary: Cath Placed During This Visit: yes, but has since been removed by the nurse Reason for Continuing Indwelling Catheter: Required Immobilization for Trauma or Surgery or Anesthesia Urinary Catheter Date of Insertion: 09/09/25 Urinary Catheter Time of Insertion: 11:09 Date Urinary Catheter Removed: 09/10/25 Time Urinary Catheter Discontinued: 09:08 Discharge Data Studies Completed and Pending Pending at discharge Category Date Time Status QUALITY ASSURANCE MONITOR CHASSIS request for service Routine Exams 09/09/25 07:30 Taken Laboratory Results WBC 9.56 10^3/uL (3.29-11.43) 09/10/25 04:36 RBC 4.72 10^6/uL (3.85-5.65) 09/10/25 04:36 Hgb 13.80 g/dL (11.27-16.99) 09/10/25 04:36 Hct 41.9 % (36-47) 09/10/25 04:36 MCV 88.8 fl (85-98) 09/10/25 04:36 MCH 29.2 pg (27-33) 09/10/25 04:36 MCHC 32.9 g/dL (30-55) 09/10/25 04:36 RDW 15.1 % (12.1-15.1) 09/10/25 04:36 Plt Count 208 10^3/cmm (157-399) 09/10/25 04:36 MPV 10.4 fL (7.4-10.4) 09/10/25 04:36 Neut % (Auto) 73.9 % 09/10/25 04:36 Lymph % (Auto) 17.1 % 09/10/25 04:36 Dewitt % (Auto) 7.3 % 09/10/25 04:36 Eos % (Auto) 0.6 % 09/10/25 04:36 Baso % (Auto) 0.7 % 09/10/25 04:36 Neut # (Auto) 7.06 10^3/uL (1.8-7.7) 09/10/25 04:36 Lymph # (Auto) 1.6 10^3/uL (0.8-4.8) 09/10/25 04:36 Dewitt # (Auto) 0.7 10^3/uL (0.2-0.9) 09/10/25 04:36 Eos # (Auto) 0.1 10^3/uL (0.0-0.8) 09/10/25 04:36 Baso # (Auto) 0.1 10^3/uL (0.0-0.1) 09/10/25 04:36 Nucleated RBC % (auto) 0 % 09/10/25 04:36 Nucleated RBCs # 0.0 /100WBC 09/10/25 04:36 APTT 56.1 SECONDS (23.9-36.7) H 09/09/25 12:27 Sodium 137 mmol/L (136-145) 09/10/25 04:36 Potassium 4.5 mmol/L (3.5-5.1) 09/10/25 04:36 Chloride 103 mmol/L (98-107) 09/10/25 04:36 Carbon Dioxide 17 mmol/L (22-29) L 09/10/25 04:36 Anion Gap 21.5 (5-19) H 09/10/25 04:36 BUN 21 mg/dL (8-23) 09/10/25 04:36 Creatinine 0.7 mg/dL (0.5-0.9) 09/10/25 04:36 GFR Calculation Not Reportable 09/10/25 04:36 Glucose 185 mg/dL (65-115) H 09/10/25 04:36 Calculated Osmolality 292 mOsm/kg (285-295) 09/10/25 04:36 Calcium 9.0 mg/dL (8.5-10.5) 09/10/25 04:36 Procedures Performed Date of procedure: 09/09/25 Pre-procedure diagnosis: Critical limb ischemia/resting right pain Post-procedure diagnosis: other (Total occlusion of distal SFA/popliteal artery status post intervention with drug-coated balloon angioplasty and 2 stents ) Procedure: Total occlusion of right distal SFA/popliteal artery s/p intervention with drug- coated balloon angioplasty and 2 stents. Dual antiplatelet therapy with aspirin and plavix Continue statin therapy Smoking cessation strongly recommended. Performing Provider: Felice Wolf Estimated blood loss (mL): 10 Complications: None Condition: stable Disposition: floor Vitals Last Vital Signs Temp 97.8 F 09/09/25 08:00 Pulse 91 09/10/25 00:00 Resp 17 09/10/25 00:00 BP 132/74 09/10/25 00:00 Pulse Ox 90 09/10/25 00:00 O2 Del Method Room Air 09/10/25 00:00 Discharge Plan Discharge Patient Disposition: Home Prescriptions: New clopidogrel 75 mg Tablet 75 mg PO DAILY Qty: 90 3RF aspirin 81 mg Tablet,Delayed Release (Dr/Ec) 81 mg PO DAILY Qty: 90 0RF Continued empagliflozin 25 mg tablet 25 mg PO QAM Qty: 90 2RF atorvastatin 20 mg tablet See Rx Instructions .ROUTE .COMPLEX Qty: 90 2RF Dose Instruction: Take 1 tablet by mouth once daily Rx Instructions: Take 1 tablet by mouth once daily glipizide 10 mg tablet extended release 24hr 10 mg PO BID 90 Days Qty: 180 2RF lisinopril 10 mg tablet See Rx Instructions .ROUTE .COMPLEX Qty: 90 2RF Dose Instruction: Take 1 tablet by mouth once daily Rx Instructions: Take 1 tablet by mouth once daily tizanidine 4 mg tablet 4 mg PO BID PRN (Reason: muscle spasticity) Qty: 60 5RF gabapentin 300 mg capsule 300 mg PO TID 30 Days Qty: 90 2RF magnesium glycinate 100 mg magnesium capsule 100 mg PO DAILY Rx Instructions: 300 mg BID epinephrine [EpiPen 2-Joseph] 0.3 mg/0.3 mL auto-injector 0.3 mg IM Q10M PRN (Reason: anaphylaxis) Qty: 2 0RF Rx Instructions: for 2 doses magnesium hydroxide [Milk of Magnesia] 400 mg/5 mL suspension 15 ml PO DAILY PRN (Reason: Constipation) Rx Instructions: one tablespoon at bedtime Held metformin 500 mg tablet extended release 24 hr 1,000 mg PO BID 90 Days Qty: 360 2RF Hold Instructions: Resume on 09/13/25. Discontinued aspirin [Adult Aspirin Regimen] 81 mg tablet,delayed release (DR/EC) 81 mg PO DAILY Qty: 90 3RF Discharge Order = DC NOW: Discharge Order (Routine); Ordered 09/10/25 Ordered By: Mary Matthews Referrals: Mary Matthews NP [Nurse Practitioner, Cardiology] - 09/29/25 3:30 pm Jennifer Caldwell MD [Primary Care Provider, Family Practice] - 09/24/25 9:00 am Patient Instructions: Aspirin (By mouth), Clopidogrel (By mouth), How to Stop Smoking (DC), Peripheral Vascular Stent Placement (DC), Peripheral Vascular Angioplasty (DC), Post Angiogram Home Care Instructions Activity Restrictions/Additional Instructions: Discussed with patient no heavy lifting more than a gallon of milk as well as going up or down steps for 3 days. No driving for 3 days. Monitor for and report signs or symptoms of bleeding. Monitor for and report s/s of infection such as fever 101 or greater, swelling, redness or pain to the groin. Print Language: Estonian Discharge Date/Time: 09/10/25 10:53 Discharge Attestations Time Spent in Discharge Care*: less than 30 min Quality Metrics Clinical Quality Measures [ No reported AMI, CVA or VTE this stay] Coding Level of Care Code Acute Code for Chg Fwd
== END 2025-09-10 10:53 | disposition home or self-care (01) ==
LOC: CCL 07:20 → CSU 12:07
PROVIDERS: Nurse Practitioner Family; PCP Family Medicine; Visit Provider Internal Medicine
DX: I70.221 Atherosclerosis of native arteries of extremities with rest pain, right leg (principal); I70.92 Chronic total occlusion of artery of the extremities; E78.5 Hyperlipidemia, unspecified; E11.9 Type 2 diabetes mellitus without complications; J44.9 Chronic obstructive pulmonary disease, unspecified; F17.210 Nicotine dependence, cigarettes, uncomplicated; Z85.3 Personal history of malignant neoplasm of breast; E78.1 Pure hyperglyceridemia; Z79.84 Long term (current) use of oral hypoglycemic drugs; Z79.82 Long term (current) use of aspirin
CPT/HCPCS: 36415; 37226; 51702; 75625; 75716; 80048; 85025; 85347; 85730; 99152; 99153; C1760; C1769; C1876; C1887; C1894; C2623; G0269; J1644; J2250; J3010; J7030; J9999; Q0163; Q9967

== ENCOUNTER 2025-09-15 10:25 | Outpatient (CLI) | payer MEDICARE, SELFPAY ==
--- NOTE | 2025-09-15 11:00 | MRR_ITS ---
PROCEDURE INFORMATION: Exam: MR Abdomen Without Contrast Exam date and time: 09/15/2025 11:09 AM Age: 75 years old Clinical indication: Abnormal findings; Abnormal radiologic finding of the abdomen; Prior surgery; Surgery date: 6+ months; Surgery type: Tubal; Mild dilatation of the pancreatic duct. Two small cystic lesions in the. Pancreas. Heterogeneous density head and body of the pancreas but no. Discrete mass. / this all was noted on a recent CT. 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 . . TECHNIQUE: Imaging protocol: Magnetic resonance imaging of the abdomen without contrast. COMPARISON: CT chest abd w con*[id number] 02/21/2023 2:08 PM. CTA abdomen aorta runoff dated 08/06/2025. FINDINGS: Liver: Stable subcentimeter cyst hepatic segment 4/8. Liver is otherwise unremarkable. Gallbladder and biliary ducts: The gallbladder is present and demonstrates chronic contracted appearance concerning for chronic cholecystitis. There is stable dilation of the intra and extrahepatic bile ducts. The common bile duct measures 10 mm in diameter. Pancreas: There is stable size of the pancreatic duct measuring up to 3 mm in diameter. There is no transition point. The duct is stable in size to the ampulla. This is the upper limits of normal. There is no pancreatic mass. Spleen: Spleen is unremarkable. Adrenal glands: The adrenal glands are unremarkable. Kidneys: The kidneys are unremarkable. Stomach and bowel: Visualized stomach and intestines are unremarkable. Intraperitoneal space: No free fluid. Vasculature: No abdominal aortic aneurysm. Lymph nodes: No enlarged nodes. Bones/joints: The visible skeletal structures are unremarkable. Soft tissues: Status post left mastectomy. The remaining soft tissue is unremarkable. Other findings: The visible portion of the chest is unremarkable. MR/MR abdomen wo/w con* [id number] IMPRESSION: 1. The gallbladder is present and demonstrates chronic contracted appearance concerning for chronic cholecystitis. 2. There is stable dilation of the intra and extrahepatic bile ducts. The common bile duct measures 10 mm in diameter. 3. There is stable size of the pancreatic duct measuring up to 3 mm in diameter. There is no transition point. The duct is stable in size to the ampulla. This is at the upper limits of normal. 4. There is no visible pancreatic mass.
[2025-09-15] MEDS: gadobenate dimeglumine 20 mL vial 13 ML IV (11:31)
== END 2025-09-15 10:26 | disposition home or self-care (01) ==
LOC: RAD 10:25
PROVIDERS: PCP Family Medicine; Visit Provider Family Medicine
DX: Q45.3 Other congenital malformations of pancreas and pancreatic duct (principal); R93.89 Abnormal findings on diagnostic imaging of other specified body structures; K76.89 Other specified diseases of liver; Z90.12 Acquired absence of left breast and nipple
CPT/HCPCS: 74183

== ENCOUNTER 2025-09-15 16:30 | Emergency (ER) | payer MEDICARE, SELFPAY ==
--- OUTSIDE RECORDS SUMMARY | 2025-09-15 16:34 | XMS_ITS | Clinical Summary ---
Author Organization [facility] Address [address] [place] [address] Phone Care Team Providers Care Hospital Product Specialist Name Role Phone Jennifer Caldwell MD Primary Care Provider [phone] Allergies Active Allergy Reactions Criticality Noted Date Comments Ampicillin Nausea and Vomiting Low 09/08/2021 Pain Unclassified Drug Nausea and Vomiting Low Pain Pills Medications metFORMIN (GLUCOPHAGE) 1,000 mg tablet 07/31/2021 Act hcarley lisinopriL (PRINIVIL) 2.5 mg tablet 07/31/2021 Active glipiZIDE (GLUCOTROL XL) 10 mg Extended Release 24 hour tablet 20 mg. 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 Max Daily Amount: 6 Tablets 25 Tablet 10/05/2021 Active Active Problems Problem Noted Date Diagnosed Date Neoplasm of left breast, devyn matt tumor staging category Tis: ductal carcinoma in situ (DCIS) 09/27/2021 Cancer Staging:Pathologic stage from 10/06/2021:Stage 0(pTis (DCIS), pN0(sn), cM0) - Signed by John Davalos MD on 10/06/2021 Encounters Date Type Department Care Team Description 08/28/2025 Orders Only [facility] Surgery[address] Davila [address] [place] [id number] Alexandre White MD 08/19/2025 External Device Data STL ABSTRACTION Provider, Abstract 08/19/2025 External Device Data STL ABSTRACTION Provider, Abstract 08/19/2025 External Device Data STL ABSTRACTION Provider, Abstract 07/29/2025 External Device Data STL ABSTRACTION Provider, Abstract 07/16/2025 External Device Data STL ABSTRACTION Provider, Abstract 07/16/2025 External Device Data STL ABSTRACTION Provider, Abstract 07/15/2025 External Device Data STL ABSTRACTION Provider, Abstract 07/01/2025 External Device Data STL ABSTRACTION Provider, Abstract 06/17/2025 External Device Data STL ABSTRACTION Provider, Abstract 06/17/2025 External Device Data STL ABSTRACTION Provider, Abstract 06/17/2025 External Device Data STL ABSTRACTION Provider, Abstract from Last 3 Months Family History Medical History Relation Name Comments Breast Cancer Neg Hx Social History Tobacco Use Types Packs/Day Years Used Date Smoking Tobacco: Every Day Cigarettes Smokeless Tobacco: Never Tobacco Cessation:Ready to Q uit: No; Counseling Given: Yes Alcohol Use Standard Drinks/Week Comments Yes 0 (1 standard drink = 0.6 oz pur e alcohol) Feeling Safe Answer Date Recorded Are you in a relationship wi th someone who hurts you emotionally and/or physically? No 05/19/2025 Comments No Sex and Gender Information Value Date Recorded Sex Assigned at Not on file Legal Sex Female 1:21 PM CDT Gender Identity Not on file Sexual Orientation Not on file Last Filed Vital Signs Vital Sign Reading Time Taken Comments Blood Pressure 145/74 05/19/2025 1:30 PM CDT Pulse 89 05/19/2025 1:45 PM CDT Temperature 36.2 C (97.1 F) 05/19/2025 12:42 PM CDT Respiratory Rate 17 05/19/2025 1:13 PM CDT Oxygen Saturation 99% 05/19/2025 1:45 PM CDT Inhaled Oxygen Concentration - - Weight 63.5 kg (140 lb) 05/19/2025 12:42 PM CDT Height 162.6 cm (5' 4 ) 05/19/2025 12:42 PM CDT Body Mass Index 24.03 05/19/2025 12:42 PM CDT Plan of Treatment Upcoming Encounters Date Type Department Care Team (Latest Contact Info) Description 10/03/2025 2:28 PM PAVING BED MAKER Hospital Encounter [facility] [address] [place] [address] Alexandre White MD [address] [place] [address] Encounter for screening for malignant neoplasm of colon 10/03/2025 2:28 PM PAVING BED MAKER - 10/03/2025 3:06 PM PAVING BED MAKER Surgery [facility] [address] [place] [address] Alexander White MD [address] [place], [place] [id number] COLONOSCOPY Scheduled Procedures Name Priority Associated Diagnoses Date/Ti me COLONOSCOPY Encounter for screening for malignant neoplasm of colon 10/03/2025 2:28 PM PAVING BED MAKER Health Maintenance Due Date Last Done Comments PNEUMOCOCCAL VACCINE 50+ YEA RS (1 of 2 - PCV) 01/16/1968 ZOSTER VACCINE (1 of 2) 1999 OSTEOPOROSIS SCREENING 2014 DTAP/TDAP/TD VACCINES (1 - Tdap) 04/11/2019 04/10/20 19 RSV VACCINE (60+ or ) (1 - 1-dose 75+ series) 01/16/2024 INFLUENZA VACCINE (#1) 2025 COVID-19 Vaccine ( season) 05/26/202511/2020, 11/04/2020 Goals Goal Patient Goal Type Associated Problems Recent Progress Patient-Stated? Author Autogenerat ed Goal Care Plan Autogenerated Problem No [employer] Implanted Type Area Cell Plasterer Device Identifier Shelf Expiration Date Model / Serial / Lot Clip Ligating Horizon Med Ti [id number] - Csc - Sna Implanted:Qty: 1 on 10/05/2021 by Casper Gastelum DO at [facility] Clip Left: Breast TELEFLEX- WECK CLOSURE SYS 04/04/2026 [id number] / NA / [id number] Additional Health Concerns Active Problems Noted Date Diagnosed Date Autogenerated Problem 08/28/2025 Insurance [employer] PPO MCR Advance Directives For more information, please contact: [phone] * Full Code (Latest Code Status on File) Date Activated Date Inactivated Comments 10/05/2021 12:18 PM 10/05/2021 4:49 PM * Full Code Date Activated Date Inactivated Comments 10/05/2021 9:23 AM 10/05/2021 12:17 PM Care Teams Hospital Product Specialist Relationship Specialty Start Date End Date Jennifer Caldwell MD PCP - General Family Practice 09/15/21
[2025-09-15 16:48] VITALS: BP 179/70; PULSE 84; RESP 16; TEMP 36.6; O2SAT 94
--- NOTE | 2025-09-15 17:28 | USR_ITS ---
PROCEDURE INFORMATION: Exam: US Duplex Right Lower Extremity Veins, Limited Exam date and time: 09/15/2025 5:45 PM Age: 75 years old Clinical indication: Pain; Leg, upper and leg, lower; Right; Prior surgery; Surgery date: 3-7 days post-operative; Surgery type: PT states that she had stents placed last Monday; Additional info: Pain swelling TECHNIQUE: Imaging protocol: Real-time duplex ultrasound of the right extremity with 2-D sanchez scale, color Doppler flow and spectral waveform analysis including responses to compression and other maneuvers (when performed) with image documentation. Limited exam was focused on the right lower extremity veins. COMPARISON: CT angio abd aorta runof [id number] 08/06/2025 3:48 PM FINDINGS: Right deep veins: There appears to be thrombosis involving the mid and proximal superficial femoral vein. The common femoral vein, popliteal vein and calf veins are widely patent.. Superficial veins: Greater saphenous vein at the saphenofemoral junction is patent without thrombus. Soft tissues: Unremarkable. US/[place] [id number] IMPRESSION: Positive femoral DVT
[2025-09-15 18:14] VITALS: BP 164/101; PULSE 77; O2SAT 96
[2025-09-15 18:34] LABS: Hematocrit 40.8 % (36-47); Hemoglobin 13.10 g/dL (11.27-16.99); Mean Corpuscular HGB Conc 32.1 g/dL (30-55); Mean Corpuscular Hemoglobin 28.4 pg (27-33); Mean Corpuscular Volume 88.5 fl (85-98); Nucleated Red Blood Cells % 0 %; Platelet Count 278 10^3/cmm (157-399); Red Blood Count 4.61 10^6/uL (3.85-5.65); White Blood Count 7.39 10^3/uL (3.29-11.43)
[2025-09-15 18:49] LABS: Blood Urea Nitrogen 26 mg/dL (8-23); Calcium 9.4 mg/dL (8.5-10.5); Carbon Dioxide 21 mmol/L (22-29); Chloride 106 mmol/L (98-107); Glucose 126 mg/dL (65-115); Osmolality Calculated 298 mOsm/kg (285-295); Sodium 141 mmol/L (136-145)
[2025-09-15 18:56] LABS: Anion Gap 18.2 (5-19); Potassium 4.2 mmol/L (3.5-5.1)
--- NOTE | 2025-09-16 08:26 | W.ED.GENADLT ---
HPI - General Adult General: Chief complaint: General Medical Stated complaint: R leg and foot swelling 6 days post angiogram Time Seen by Provider: 09/15/25 17:24 History of Present Illness: 75-year-old female presents emergency room complaining of swelling in her right leg. She recently underwent a lower extremity angiogram. Patient has noticed swelling with discomfort in her right lower leg that began over the last couple of days. No chest pain no shortness of breath. She is aspirin and Plavix. She did have stents placed in her leg. Associated symptoms: Deny chest pain, dyspnea or rash Related Data Home Medications ?Medication ?Instructions ?Recorded ?Confirmed magnesium hydroxide 400 mg/5 mL 15 ml PO DAILY PRN Constipation 08/28/24 09/15/25 oral suspension (Milk of Magnesia) magnesium glycinate 100 mg PO DAILY 07/09/25 09/15/25 aspirin 81 mg tablet 81 mg PO DAILY 09/15/25 09/15/25 Previous Rx's ?Medication ?Instructions ?Recorded epinephrine 0.3 mg/0.3 mL 0.3 mg (0.3 mL) IM Q10M PRN 05/29/24 injection, auto-injector (EpiPen anaphylaxis #2 ea 2-Joseph) atorvastatin 20 mg tablet See Rx Instructions .Route 05/29/25 .COMPLEX #90 tabs empagliflozin 25 mg tablet 25 mg PO QAM #90 tabs 05/29/25 glipizide 10 mg tablet, extended 10 mg PO BID 90 days #180 tabs 05/29/25 release 24 hr lisinopril 10 mg tablet See Rx Instructions .Route 05/29/25 .COMPLEX #90 tabs gabapentin 300 mg capsule 300 mg PO TID 30 days #90 caps 08/26/25 metformin 500 mg tablet,extended 1,000 mg (2 x 500 mg) PO BID 90 08/26/25 release 24 hr days #360 tabs Held on 09/10/25. Instructions: Resume on 09/13/25. tizanidine 4 mg tablet 4 mg PO BID PRN muscle spasticity 08/26/25 #60 tabs aspirin 81 mg tablet,delayed 81 mg PO DAILY #90 tabs 09/10/25 release clopidogrel 75 mg tablet 75 mg PO DAILY #90 tabs 09/10/25 apixaban 5 mg (74 tabs) tablets in See Rx Instructions PO .COMPLEX 09/15/25 a dose pack (Eliquis DVT-PE Treat #74 ea 30D Start) Allergies Allergy/AdvReac Type Severity Reaction Status Date / Time amoxicillin Allergy vomiting Verified 09/16/25 07:13 Review of Systems Const: Denies: fever(s) or chills Card: Denies: chest pain Resp: Denies: dyspnea GI: Denies: abdominal pain : Denies: dysuria, urinary frequency or urinary urgency Musc: Denies: neck pain or back pain Skin/Breast: Denies: rash PFSH ED PFSH: Medical History HX: breast cancer Bee sting-induced anaphylaxis Tobacco use Hypertriglyceridemia Type 2 diabetes mellitus Surgical History History of mastectomy S/P mastectomy, bilateral H/O tubal ligation Hx of tonsillectomy Family History Mother Hypertension Sister Hypertension Social History Smoking and tobacco/nicotine status: current every day tobacco/nicotine user cigarettes Packs smoked per day: 1 Years cigarettes smoked: 56 Alcohol intake: current Alcohol intake frequency: few times a month Substance/Drug Use: never Current gender identity: Female Female Reproductive History: Spontaneous abortions: No Physical Exam Const: COMMON NORMALS: no acute distress GENERAL APPEARANCE: cooperative and comfortable ORIENTATION/CONSCIOUSNESS: Yes awake, Yes oriented to person, Yes oriented to place and Yes oriented to time HENMT: COMMON NORMALS: normocephalic, atraumatic and hearing grossly normal bilaterally HEAD & SCALP: normocephalic and atraumatic Resp: COMMON NORMALS: normal respiratory effort, No retractions, No use of accessory muscles and clear to auscultation bilaterally AUSCULTATION: clear to auscultation bilaterally Cardio: COMMON NORMALS: regular rate, regular rhythm and No murmurs present (Cardio) RATE: regular rate RHYTHM: regular rhythm GI: COMMON NORMALS: Soft to palpation and No hepatosplenomegaly present AUSCULTATION: Yes normoactive bowel sounds PALPATION: Yes Soft to palpation, No Tenderness to palpation present (GI), No Guarding due to palpation present (GI) and Yes No hepatosplenomegaly present Extremity: OTHER: Moderate swelling and tenderness of the right lower leg mild discomfort with palpation of the calf no discomfort to palpation of the medial distal thigh. Dorsalis pedis posterior tibialis pulses strong. No redness no erythema generalized swelling no signs of cellulitis Neuro: SENSORIUM/ORIENTATION: Yes oriented to person, Yes oriented to place and Yes oriented to time Skin: COMMON NORMALS: no rashes or lesions noted GENERAL SKIN EXAM: no rashes or lesions noted Course Vital Signs: Vital signs: Vital Signs Temperature 97.9 F 09/15/25 16:48 Pulse Rate 77 09/15/25 18:14 Respiratory Rate 16 09/15/25 16:48 Blood Pressure 164/101 09/15/25 18:14 Pulse Oximetry 96 09/15/25 18:14 Oxygen Delivery Me thod Room Air 09/15/25 16:48 MDM - General Adult Medical Decision Making Medical decision making Social determinants: None I reviewed the patient's medical record. I reviewed the patient's current home meds. Alternate historians: None Differential diagnosis: Lymphedema cellulitis DVT Lab Review: CBC unremarkable. Chemistry panel BUN 26 creatinine 0.9 liver functions normal. Imaging: Venous duplex shows DVT Assessment of risk Level of risk: Moderate Hospitalization considerations: No need for hospitalization at this time Reexamination: Unchanged Assessment and plan: Venous duplex shows DVT patient given Lovenox will start on Eliquis. Will contact her driver education instructor she currently is on aspirin and Plavix continue triple therapy for now. Discussed with her driver education instructor Dr. Ervin he will evaluate at her next follow-up whether or not she should continue triple therapy. Encouraged patient to maintain taking the Eliquis until specifically told she could stop by either her driver education instructor or primary care doctor. Return if she has shortness of breath or chest pain. Lab Data 09/15/25 18:05 09/15/25 18:05 Radiology Impressions Venous Duplex 09/15/25 17:28 IMPRESSION: Positive femoral DVT Laboratory Results WBC 7.39 10^3/uL (3.29-11.43) 09/15/25 18:05 RBC 4.61 10^6/uL (3.85-5.65) 09/15/25 18:05 Hgb 13.10 g/dL (11.27-16.99) 09/15/25 18:05 Hct 40.8 % (36-47) 09/15/25 18:05 MCV 88.5 fl (85-98) 09/15/25 18:05 MCH 28.4 pg (27-33) 09/15/25 18:05 MCHC 32.1 g/dL (30-55) 09/15/25 18:05 RDW 15.3 % (12.1-15.1) H 09/15/25 18:05 Plt Count 278 10^3/cmm (157-399) 09/15/25 18:05 MPV 9.8 fL (7.4-10.4) 09/15/25 18:05 Neut % (Auto) 64.4 % 09/15/25 18:05 Lymph % (Auto) 27.3 % 09/15/25 18:05 [place] % (Auto) 5.8 % 09/15/25 18:05 Eos % (Auto) 1.4 % 09/15/25 18:05 Baso % (Auto) 0.7 % 09/15/25 18:05 Neut # (Auto) 4.76 10^3/uL (1.8-7.7) 09/15/25 18:05 Lymph # (Auto) 2.0 10^3/uL (0.8-4.8) 09/15/25 18:05 [place] # (Auto) 0.4 10^3/uL (0.2-0.9) 09/15/25 18:05 Eos # (Auto) 0.1 10^3/uL (0.0-0.8) 09/15/25 18:05 Baso # (Auto) 0.1 10^3/uL (0.0-0.1) 09/15/25 18:05 Nucleated RBC % (auto) 0 % 09/15/25 18:05 Nucleated RBCs # 0.0 /100WBC 09/15/25 18:05 Sodium 141 mmol/L (136-145) 09/15/25 18:05 Potassium 4.2 mmol/L (3.5-5.1) 09/15/25 18:05 Chloride 106 mmol/L (98-107) 09/15/25 18:05 Carbon Dioxide 21 mmol/L (22-29) L 09/15/25 18:05 Anion Gap 18.2 (5-19) 09/15/25 18:05 BUN 26 mg/dL (8-23) H 09/15/25 18:05 Creatinine 0.9 mg/dL (0.5-0.9) 09/15/25 18:05 GFR Calculation Not Reportable 09/15/25 18:05 Glucose 126 mg/dL (65-115) H 09/15/25 18:05 Calculated Osmolality 298 mOsm/kg (285-295) H 09/15/25 18:05 Calcium 9.4 mg/dL (8.5-10.5) 09/15/25 18:05 All radiology interpretation(s) finalized by discharge Discharge Plan Discharge Patient Disposition: Home Clinical Impression: Acute deep vein thrombosis (DVT) of femoral vein of right lower extremity Condition: Stable Prescriptions: New [place] RTres [place] DVT-PE Treat 30D Start 5 mg (74 tabs) tablets,dose pack See Rx Instructions .ROUTE .COMPLEX Qty: 74 0RF Rx Instructions: orally per package directions No Action empagliflozin 25 mg tablet 25 mg PO QAM Qty: 90 2RF atorvastatin 20 mg tablet See Rx Instructions .ROUTE .COMPLEX Qty: 90 2RF Dose Instruction: Take 1 tablet by mouth once daily Rx Instructions: Take 1 tablet by mouth once daily glipizide 10 mg tablet extended release 24hr 10 mg PO BID 90 Days Qty: 180 2RF lisinopril 10 mg tablet See Rx Instructions .ROUTE .COMPLEX Qty: 90 2RF Dose Instruction: Take 1 tablet by mouth once daily Rx Instructions: Take 1 tablet by mouth once daily tizanidine 4 mg tablet 4 mg PO BID PRN (Reason: muscle spasticity) Qty: 60 5RF gabapentin 300 mg capsule 300 mg PO TID 30 Days Qty: 90 2RF metformin 500 mg tablet extended release 24 hr 1,000 mg PO BID 90 Days Qty: 360 2RF magnesium glycinate 100 mg magnesium capsule 100 mg PO DAILY Rx Instructions: 300 mg BID epinephrine [EpiPen 2-Joseph] 0.3 mg/0.3 mL auto-injector 0.3 mg IM Q10M PRN (Reason: anaphylaxis) Qty: 2 0RF Rx Instructions: for 2 doses magnesium hydroxide [Milk of Magnesia] 400 mg/5 mL suspension 15 ml PO DAILY PRN (Reason: Constipation) Rx Instructions: one tablespoon at bedtime aspirin 81 mg tablet 81 mg PO DAILY clopidogrel 75 mg Tablet 75 mg PO DAILY Qty: 90 3RF aspirin 81 mg Tablet,Delayed Release (Dr/Ec) 81 mg PO DAILY Qty: 90 0RF Discharge Orders: Discharge ED (Routine); Ordered 09/15/25 Ordered By: Vladislav Redd Referrals: Jennifer Caldwell MD [Primary Care Provider, Family Practice] Patient Instructions: Deep Vein Thrombosis (ED), Opioid Safety, Pain Management, Patient Portal & [facility] Instructions Activity Restrictions/Additional Instructions: Thank you for choosing [facility] for your healthcare needs today. It is very important that you follow up as instructed or that you return to the Emergency Department should you have concerns or if your condition changes or worsens in any way. Emergency department visits are focused on emergent conditions, in some cases you may require further evaluation on an outpatient basis. You were seen in the emergency room with complaint of swelling and discomfort in your right leg ultrasound shows you do have a deep vein thrombosis (DVT/blood clot) in your right leg. You are given a shot of blood thinner endogastric prescription for oral blood thinner. You should continue to take the oral blood thinner until your doctor specifically tells you you can stop. The initial prescription is for 30 days get follow-up refills from your primary care doctor or from your driver education instructor. (Please note that included in your discharge packet is information concerning opioid safety and pain management. This information is given to all patients were discharged from the ER regardless of their discharge diagnosis or the medicines they usually take or are prescribed.) Print Language: Serbian Coding Level of Care Code ED Terrazzo Supervisor for Chapin Chong
== END 2025-09-15 18:20 | disposition home or self-care (01) ==
PROVIDERS: Emergency Provider Family Medicine; PCP Family Medicine
DX: I82.411 Acute embolism and thrombosis of right femoral vein (principal); Z79.84 Long term (current) use of oral hypoglycemic drugs; Z79.82 Long term (current) use of aspirin; Z79.02 Long term (current) use of antithrombotics/antiplatelets; F17.210 Nicotine dependence, cigarettes, uncomplicated; E11.9 Type 2 diabetes mellitus without complications; Z85.3 Personal history of malignant neoplasm of breast
CPT/HCPCS: 36415; 80048; 85025; 93971; 96372; 99284; J1650